=== PATIENT | male | born 1965 | race Caucasian/White ===

== ENCOUNTER 2017-02-04 20:17 | Inpatient (IN) | payer OTHER ==
[~2017-02-04] VITALS: Ht 193 cm; Wt 81.6 kg
--- NOTE | ~2017-02-04 | PN ---
Unit #: [id number] #: [id number] Patient: JOSETTE STONE [id number] [facility] [address] [place] [address] [id number] MR#: [id number] NAME: JOSETTE STONE ROOM: [facility] Age: 52 Sex: M Admission Date: 02/04/2017 : 1965 Attending Physician: Bouchra Estrada M.D. Admitting Physician: Bouchra Estrada M.D. Primary Care Physician: Britton Montenegro PROGRESS NOTES DATE February 11, 2017 DISCUSSION Mr. Stone is a 52-year-old white male, who was seen today and chart was reviewed and the case was discussed with the staff. He has been anxious, withdrawn, and rather seclusive to himself. Meanwhile, he has been cooperative with the treatment recommendations, and he has been taking the medications and tolerating them fairly well with no reported side effects. MENTAL STATUS EXAMINATION Middle-aged white male, who was casually dressed with fair personal hygiene and appears to be in no acute distress or discomfort. He was awake and alert on interaction with intact orientation. His mood is anxious with a congruent affect. His speech is slow and goal-directed. He denies any suicidal or homicidal ideations, and also denies any auditory or visual hallucinations. His insight and judgment remain slightly impaired. TREATMENT PLAN 1. We will continue him on his current medications and treatment protocol, and will monitor his response to the medications, and make further adjustments as needed. 2. We will continue to followup. Dictated by... Britton Avilez/farzana TD: 02/11/2017 12:59 JOB #: [id number] Unit #: [id number] #: [id number] Patient: JOSETTE STONE PROGRESS NOTES Page 1 of 1 X Bouchra Estrada MD PROGRESS NOTE
--- NOTE | ~2017-02-04 | PN ---
Unit #: [id number] #: [id number] Patient: JOSETTE STONE [id number] [facility] [address] [place] [address] [id number] MR#: [id number] NAME: JOSETTE STONE ROOM: P251 Age: 52 Sex: M Admission Date: 02/04/2017 : 1965 Attending Physician: Bouchra Estrada M.D. Admitting Physician: Bouchra Estrada M.D. Primary Care Physician: Britton Montenegro PROGRESS NOTES DATE 02/06/2017 DISCUSSION Mr. Stone is a 52-year-old white male who was seen today and chart was reviewed and case was discussed with the staff. He has been anxious, withdrawn and rather seclusive to himself. Meanwhile, he has been cooperative with treatment recommendations and has been taking medications and tolerating them fairly well with no reported side effects. MENTAL STATUS EXAMINATION Middle-aged white male who was casually dressed with fair personal hygiene and appears to be in no acute distress or discomfort. He was awake and alert on interaction with intact orientation. His mood was anxious and depressed with congruent affect. His speech is slow and restricted in content. He reports having suicidal ideations but denies any homicidal ideations. His insight and judgement remains significantly impaired. TREATMENT PLAN 1. Will continue on his current medications and treatment protocol. Will monitor his medications and make further adjustments as needed. 2. Will continue to follow up. Dictated by... Britton Avilez/benjamin TD: 02/06/2017 18:16 JOB #: [id number] Unit #: [id number] #: [id number] Patient: JOSETTE STONE PROGRESS NOTES Page 1 of 1 X Bouchra Estrada MD X PROGRESS NOTE
--- NOTE | ~2017-02-04 | HP ---
Unit #: [id number] #: [id number] Patient: RICKEY BARROSO [id number] [place] [address] [id number] MR#: [id number] NAME: RICKEY BARROSO ROOM: P251 Age: 52 Sex: M Admission Date: 02/04/2017 : 1965 Attending Physician: Bouchra Estrada M.D. Admitting Physician: Bouchra Estrada M.D. Primary Care Physician: Rickey Ponce M.D. HISTORY AND PHYSICAL HISTORY OF PRESENT ILLNESS Rickey is a 52 year old admitted to [address] [place] [address] with depression and verbalizing wanting to hurt himself. PAST MEDICAL HISTORY 1. History of alcohol abuse. He denies anything currently. 2. COPD. PAST SURGICAL HISTORY 1. Appendectomy. 2. Inguinal hernia repair. ALLERGIES No known drug allergies. SOCIAL HISTORY He smokes greater than 1 pack per day. Has a history of alcohol abuse but admits to using alcohol only "occasionally." He denies illicit drug use. FAMILY HISTORY Medically noncontributory. REVIEW OF SYSTEMS CONSTITUTIONAL: No fever or chills. HEENT: Denies any sore throat, ear pain or runny nose. CARDIOVASCULAR: Denies chest pain, irregular heart rhythm or palpitations. CHEST: Denies shortness of breath or cough. No hemoptysis. GASTROINTESTINAL: Denies nausea, vomiting, diarrhea or chronic constipation. ENDOCRINE: Denies history of increased thirst or urination. No recent significant weight loss or gain. GENITOURINARY: Denies dysuria, frequency, or hematuria. SKIN: Denies any rashes. HEMATOLOGIC: Denies history of increased bleeding or bruising. MUSCULOSKELETAL: Denies any hot, swollen joints. No generalized muscle pain. NEUROLOGIC: Denies problems with vision or speech. No frequent, severe headaches. No numbness, tingling or weakness in any extremities. Denies loss of bladder or bowel control. CURRENT MEDICATIONS 1. Zyprexa 30 mg q.h.s. 2. Protonix 40 mg daily. Unit #: [id number] #: [id number] Patient: RICKEY BARROSO 3. Whitmire 300 mg q.a.m., 600 mg q.h.s. 4. Nicotine patch 14 mg daily. 5. Milk of Magnesia p.r.n. 6. Maalox p.r.n. 7. Tylenol p.r.n. 8. Lamictal 25 mg b.i.d. PHYSICAL EXAMINATION GENERAL: Alert, well-nourished, in no apparent distress. VITAL SIGNS: Blood pressure 132/72, heart rate 70, respirations 16, temperature 98.6. WEIGHT: 180. HEIGHT: 6 feet 4 inches. SKIN: Warm and dry without rash or lesion. HEENT: Normocephalic. TMs not viewed. Oral and nasal passages clear. Conjunctivae clear. PERRLA. EOMs intact. NECK: Supple without lymphadenopathy or thyromegaly. HEART: Regular rate and rhythm without murmur. LUNGS: Clear. ABDOMEN: Soft, nontender. : Not done. EXTREMITIES: No evidence of cyanosis, clubbing or edema. Moves all without focal deficit. NEUROLOGICAL: Grossly within normal limits. Cranial Nerves: II: Visual engle are intact. III, IV AND : Extraocular movements are intact. Pupils are equal, round and reactive to light. V: Facial sensation is grossly normal. VII: Facial movements and expression are normal. VIII: Auditory acuity grossly intact. IX, X: Uvula is midline. Phonation is normal. XI: Patient shrugs shoulders and turns head normally. XII: Tongue protrudes in the midline. Sensory and Motor Function: Sensory and motor sensation is grossly normal. Motor: moves all extremities well. Coordination: Gait is normal. Deep Tendon Reflexes: Intact. IMPRESSION Psychiatric admission. RECOMMENDATIONS PSYCHIATRIC: Per psychiatrist. MEDICAL: See no contraindication to participate in facility's activities. MEDICAL PROGNOSIS Good. MEDICAL CONDITION Stable. Dictated by... Lanette Wiley P.A.-C. for Britton Pak/benjamin TD: 02/05/2017 17:25 Unit #: [id number] #: [id number] Patient: RICKEY BARROSO JOB #: [id number] HISTORY AND PHYSICAL Page 1 of 1 X Lanette Wiley X HISTORY AND PHYSICAL
--- NOTE | ~2017-02-04 | PN ---
Unit #: [id number] #: [id number] Patient: JOSETTE STONE [id number] [facility] [address] [place] [address] [id number] I MR#: [id number] NAME: JOSETTE STONE ROOM: P251 Age: 52 Sex: M Admission Date: 02/04/2017 : 1965 Attending Physician: Bouchra Estrada M.D. Admitting Physician: Bouchra Estrada M.D. Primary Care Physician: Britton Montenegro PROGRESS NOTES DATE 02/09/2017 DISCUSSION Mr. Stone is a 52-year-old white male who was seen today and chart was reviewed and case was discussed with the staff. He has been anxious, withdrawn, depressed and rather seclusive to himself and reports persistent depressive symptoms and feelings of hopelessness. Meanwhile, he has been cooperative with treatment recommendations and has been taking medications and tolerating them fairly well with no reported side effects. MENTAL STATUS EXAMINATION Middle-aged white male who was casually dressed with marginal personal hygiene and appears to be in no acute distress or discomfort. He was awake and alert with impaired attention and concentration. His mood was anxious and depressed with congruent affect. His speech is slow and restricted in content. He reports having suicidal ideation but denies any homicidal ideation. His insight and judgement remains slightly impaired. TREATMENT PLAN 1. Will continue on his current medications and treatment protocol and will monitor his response to the medications and make further adjustments as needed. 2. Will continue to follow up. Dictated by... Britton Avilez/benjamin TD: 02/09/2017 23:10 JOB #: [id number] Unit #: [id number] #: [id number] Patient: JOSETTE STONE PROGRESS NOTES Page 1 of 1 X Bouchra Estrada MD PROGRESS NOTE
--- NOTE | ~2017-02-04 | PA ---
Unit #: [id number] #: [id number] Patient: RICKEY STONE [id number] [facility] [address] [place] [address] [id number] MR#: [id number] NAME: RICKEY STONE ROOM: P251 Age: 52 Sex: M Admission Date: 02/04/2017 : 1965 Date of Assessment: 02/04/2017 Attending Physician: Bouchra Estrada M.D. Admitting Physician: Bouchra Estrada M.D. Primary Care Physician: Rickey Ponce M.D. PSYCHIATRIC ASSESSMENT IDENTIFYING DATA Mr. Stone is a 52-year-old, single, disabled, white male, who is a resident of [place], [place], and was self-referred to the hospital and was brought in by crisis intervention team of [place] [employer]. CHIEF COMPLAINT "Because I was having suicidal thoughts." HISTORY OF PRESENT ILLNESS Mr. Stone is a 52-year-old white male with a history of mood disorder, who called crisis intervention team to bring him to [facility] because he was having suicidal thoughts and reports that he stopped taking his lithium and Lamictal at least 7 days ago and reports he has been having suicidal thoughts for the last 2 to 3 days and he has a long history of mental health treatment with multiple inpatient hospitalizations, mostly at [facility], and reports currently decompensating, particularly since being off his medication and does report increasing depression, anxiety, irritability, restlessness, feelings of hopelessness and helplessness, and suicidal ideations and as such, recommendation for inpatient level of care for safety and stabilization was made. The patient was stepped up to the inpatient unit. SUBSTANCE ABUSE HISTORY The patient reports history of alcohol, cannabis, and cocaine in the distant past, but has not used any drugs in the last several years. PAST PSYCHIATRIC HISTORY The patient has had a history of multiple inpatient psychiatric hospitalization at [facility] in addition to being at other places, and has been diagnosed and treated for mood disorder. Review of the medical records indicate that currently he is on a combination of psychotropic medication, but has stopped taking the medication. PAST MEDICAL HISTORY Hypertension and acid reflux disease. ALLERGIES No known medication allergies. PERSONAL AND SOCIAL HISTORY A 52-year-old white male, who reports that he [facility] a [facility] Unit #: [id number] #: [id number] Patient: RICKEY STONE and reports fairly decent social support system. MENTAL STATUS EXAMINATION Middle-aged white male, who was casually dressed with fair personal hygiene, appears to be in no acute distress or discomfort. He was awake and alert on interaction with intact orientation. His mood was anxious with a congruent affect. His speech was slow and goal directed. He reports having suicidal ideations, but denies any homicidal ideations, and also denies any auditory or visual hallucinations. His insight and judgment remain significantly impaired. DIAGNOSTIC IMPRESSION Psychiatric: Bipolar disorder, most recent episode depressed, recurrent, moderate, with psychosis. Medical: None. Stressors: Moderate psychosocial stressors. TREATMENT PLAN 1. The patient has presented with a history of mood disorder, and has been decompensating. We will recommend inpatient hospitalization for safety and stabilization. We will start him back on his home medications. We will adjust the medications and monitor response. 2. Supportive therapy was provided to the patient. ESTIMATED LENGTH OF STAY 5 to 7 days. ABILITY TO HELP SELF Limited. WILLINGNESS TO HELP SELF The patient appears to be willing to help self. STRENGTHS 1. Communicative. 2. Cooperative. PROBLEMS 1. Chronic dysphoric symptoms. 2. Poor social support system. DISCHARGE CRITERIA This will be contingent upon the patient's ability to show resolution of his depression and his ability to stay safe to himself, particularly after discharge from the hospital. Dictated by... Britton Avilez/robles TD: 02/05/2017 08:11 JOB #: [id number] Unit #: [id number] #: [id number] Patient: RICKEY STONE PSYCHIATRIC ASSESSMENT Page 1 of 1 X Bouchra Estrada MD X PSYCHIATRIC ASSESSMENT
--- NOTE | ~2017-02-04 | PN ---
Unit #: [id number] #: [id number] Patient: JOSETTE STONE [id number] [facility] [address] [place] [address] [id number] I MR#: [id number] NAME: JOSETTE STONE ROOM: [facility] Age: 52 Sex: M Admission Date: 02/04/2017 : 1965 Attending Physician: Bouchra Estrada M.D. Admitting Physician: Bouchra Estrada M.D. Primary Care Physician: Britton Montenegro NOTES DATE OF SERVICE 02/12/2017 DISCUSSION Mr. Stone is a 52-year-old white male who was seen today. Chart was reviewed and case was discussed with the staff. He has been anxious, withdrawn, and rather seclusive to himself. Meanwhile, he has been reporting persistent depressive symptom though he has been taking the medications and tolerating them fairly well with no reported side effects. MENTAL STATUS EXAMINATION Middle-aged white male who is casually dressed with fair personal hygiene, appears to be in no acute distress or discomfort. He was awake and alert on interaction with intact orientation. His mood is anxious with congruent affect. His speech is slow and goal-directed. He denies any suicidal or homicidal ideations and also denies any auditory or visual hallucinations. His insight and judgment remain slightly impaired. TREATMENT PLAN 1. We will continue him on his current medications and treatment protocol. We will monitor his response to the medications and make further adjustments as needed. 2. We will continue to follow up. Dictated by... Britton Avilez/jermain TD: 02/12/2017 11:59 JOB #: [id number] Unit #: [id number] #: [id number] Patient: JOSETTE STONE PROGRESS NOTES Page 1 of 1 X Bouchra Estrada MD PROGRESS NOTE
--- NOTE | ~2017-02-04 | PN ---
Unit #: [id number] #: [id number] Patient: JOSETTE STONE [id number] [facility] [address] [place] [address] [id number] I MR#: [id number] NAME: JOSETTE STONE ROOM: P25 Age: 52 Sex: M Admission Date: 02/04/2017 : 1965 Attending Physician: Bouchra Estrada M.D. Admitting Physician: Bouchra Estrada M.D. Primary Care Physician: Britton Montenegro PROGRESS NOTES DATE February 10, 2017 DISCUSSION Mr. Stone is a 52-year-old white male, who was seen today and chart was reviewed and the case was discussed with the staff. He has been anxious, withdrawn, depressed, and rather seclusive to himself. Meanwhile, he has been cooperative with the treatment recommendations and he has been taking the medications and tolerating them fairly well with no reported side effects. MENTAL STATUS EXAMINATION Middle-aged white male, who was casually dressed with fair personal hygiene and appears to be in no acute distress or discomfort. He was awake and alert on interaction with intact orientation. His mood is anxious with a congruent affect. He denies any suicidal or homicidal ideations, and also denies any auditory or visual hallucinations. His insight and judgment remain slightly impaired. TREATMENT PLAN 1. We will continue him on his current medications and treatment protocol, and will monitor his response to the medications, and make further adjustments as needed. 2. We will continue to followup. Dictated by... Britton Avilez/farzana TD: 02/10/2017 12:46 JOB #: [id number] Unit #: [id number] #: [id number] Patient: JOSETTE STONE PROGRESS NOTES Page 1 of 1 X Bouchra Estrada MD X PROGRESS NOTE
--- NOTE | ~2017-02-04 | PN ---
Unit #: [id number] #: [id number] Patient: JOSETTE BARROSO [id number] [facility] [address] [place] [address] [id number] I MR#: [id number] NAME: JOSETTE BARROSO ROOM: P251 Age: 52 Sex: M Admission Date: 02/04/2017 : 1965 Attending Physician: Bouchra Estrada M.D. Admitting Physician: Bouchra Estrada M.D. Primary Care Physician: Britton Montenegro PROGRESS NOTES DATE OF SERVICE 02/13/2017 DISCUSSION Mr. Barroso is a 52-year-old white male who was seen today. Chart was reviewed and case was (1) __ rather seclusive to himself. Meanwhile, she has been cooperative with the treatment recommendations and has been taking the medications and tolerating them fairly well. MENTAL STATUS EXAMINATION Middle-aged white male who is casually dressed with fair personal hygiene, appears to be in no acute distress or discomfort. The patient was awake and alert with intact orientation. His mood is anxious with congruent affect. He denies any suicidal or homicidal ideations. His insight and judgment remain slightly impaired. TREATMENT PLAN 1. We will continue him on his current treatment protocol. We will monitor his response to the medications and make further adjustments as needed. 2. We will continue to follow up. Dictated by... Bouchra Estrada M.D. IAA/bzg TD: 02/13/2017 18:16 JOB #: [id number] [facility] PROGRESS NOTES Page 1 of 1 X Bouchra Estrada MD PROGRESS NOTE
--- NOTE | ~2017-02-04 | PN ---
Unit #: [id number] #: [id number] Patient: JOSETTE STONE [id number] [facility] [address] [place] [address] [id number] MR#: [id number] NAME: JOSETTE STONE ROOM: P25 Age: 52 Sex: M Admission Date: 02/04/2017 : 1965 Attending Physician: Bouchra Estrada M.D. Admitting Physician: Bouchra Estrada M.D. Primary Care Physician: Britton Montenegro PROGRESS NOTES DATE February 07, 2017 DISCUSSION Mr. Stone is a 52-year-old white male, who was seen today and chart was reviewed and the case was discussed with the staff. He has been anxious, withdrawn, and rather seclusive to himself. Meanwhile, he has been cooperative with the treatment recommendations and he has been taking the medications and tolerating them fairly well with no reported side effects. MENTAL STATUS EXAMINATION Middle-aged white male, who was casually dressed with fair personal hygiene and appears to be in no acute distress or discomfort. He was awake and alert on interaction with intact orientation. His mood is anxious with a congruent affect. His speech is slow and goal-directed. He denies any suicidal or homicidal ideations. His insight and judgment remain slightly impaired. TREATMENT PLAN 1. We will continue him on his current medications and treatment protocol, and will monitor his response, and make further adjustments as needed. 2. We will continue to followup. Dictated by... Britton Avilez/farzana TD: 02/08/2017 09:33 JOB #: [id number] Unit #: [id number] #: [id number] Patient: JOSETTE STONE PROGRESS NOTES Page 1 of 1 X Bouchra Estrada MD PROGRESS NOTE
--- NOTE | ~2017-02-04 | PN ---
Unit #: [id number] #: [id number] Patient: JOSETTE STONE [id number] [facility] [address] [place] [address] [id number] I MR#: [id number] NAME: JOSETTE STONE ROOM: P251 Age: 52 Sex: M Admission Date: 02/04/2017 : 1965 Attending Physician: Bouchra Estrada M.D. Admitting Physician: Bouchra Estrada M.D. Primary Care Physician: Britton Montenegro PROGRESS NOTES DATE February 08, 2017 DISCUSSION Mr. Stone is a 52-year-old white male, who was seen today and chart was reviewed and the case was discussed with the staff. He has been anxious, withdrawn, and seclusive to himself. He was lying in bed and reports fairly persistent worsening depressive symptoms with feelings of hopelessness and helplessness, and he was unable to identify any frequent stressors. Meanwhile, he has been taking the medications and tolerating them fairly well with no reported side effects. MENTAL STATUS EXAMINATION Middle-aged white male, who was casually dressed with fair personal hygiene and appears to be in no acute distress or discomfort. He was awake and alert on interaction with intact orientation. His mood is anxious with a congruent affect. His speech is slow and goal-directed. He denies any suicidal or homicidal ideations, and also denies any auditory or visual hallucinations. His insight and judgment remain slightly impaired. TREATMENT PLAN 1. We will continue him on his current medications and treatment protocol, and will monitor his response to the medications, and make further adjustments as needed. 2. We will continue to followup. Dictated by... Britton Avilez/farzana TD: 02/09/2017 08:25 JOB #: [id number] Unit #: [id number] #: [id number] Patient: JOSETTE STONE PROGRESS NOTES Page 1 of 1 X Bouchra Estrada MD PROGRESS NOTE
[2017-02-05 10:15] LABS: URINE APPEARANCE CLEAR; URINE BILIRUBIN NEG (NEG); URINE BLOOD NEG (NEG); URINE COLOR YELLOW; URINE GLUCOSE NEG (NEG); URINE KETONE NEG (NEG); URINE LEUKOCYTE ESTERASE 2+ (NEG); URINE NITRATE NEG (NEG); URINE PH 5.5 (5-8); URINE PROTEIN NEG (NEG); URINE SPECIFIC GRAVITY 1.006 (1.003-1.035); URINE UROBILINOGEN 0.2 MG/DL (NEG)
[2017-02-05 10:19] LABS: URBCS1 AUWI 0-2 /[HPF] (0-2); URINE BACTERIA AUWI NEG (NEGATIVE); URINE SQUAMOUS EPITHELIAL CELL NONE SEEN /[HPF]
[2017-02-05 10:45] LABS: AMPHETAMINE NEG (NEG); BARBITURATES NEG (NEG); BENZODIAZEPINES NEG (NEG); COCAINE NEG (NEG); MARIJUANA NEG (NEG); OPIATES NEG (NEG); TRICYCLIC ANTIDEPRESSANTS NEG (NEG); U METHADONE NEG (NEG)
[2017-02-05 12:31] LABS: BASOPHIL# 0.1 X10e3 (0-0.3); BASOPHIL% 0.9 % (0-2.5); EOSINOPHIL# 0.3 X10e3 (0-0.7); EOSINOPHIL% 3.8 % (0.0-7.0); HEMATOCRIT 43.2 % (38.0-50.0); HEMOGLOBIN 14.9 gm/dL (13.0-16.0); LYMPHOCYTE# 1.4 X10e3 (1.0-3.5); LYMPHOCYTE% 20.9 % (17.0-45.0); MEAN CELL VOLUME 91.4 FL (83-96); MEAN CORPUSCULAR HEMOGLOBIN 31.4 PG (28-34); MEAN CORPUSCULAR HGB CONC 34.4 g/dL (30-36); MEAN PLATELET VOLUME 7.5 FL (6.5-11.5); MONOCYTE# 0.6 X10e3 (0-1.0); MONOCYTE% 8.4 % (3.0-12.0); NEUTROPHIL# 4.4 X10e3 (1.5-7.1); PLATELET COUNT 299 X10e3 (140-420); RED BLOOD COUNT 4.73 X10e (3.90-5.60); RED CELL DISTRIBUTION WIDTH 13.6 % (11.0-15.5); WHITE BLOOD COUNT 6.6 X10e3 (4.0-10.5)
[2017-02-05 12:32] LABS: DIFF IND NO
[2017-02-05 12:43] LABS: ALBUMIN SERUM 3.9 g/dL (3.5-5.0); BILIRUBIN,TOTAL 0.4 mg/dL (0.2-2.0); BUN/CREATININE RATIO 7.5; CALCIUM SERUM 9.2 mg/dL (8.4-10.2); CREATININE SERUM 0.8 mg/dL (0.6-1.4); GLOM FILT RATE Estimated 101.3 mL/min (>60); POTASSIUM 4.2 mmol/L (3.5-5.1); PROTEIN TOTAL SERUM 6.2 g/dL (6.0-8.3)
== END 2017-02-13 13:00 | disposition home or self-care (01) | DRG 885 ==
LOC: P2L 21:33
PROVIDERS: Psychiatry & Neurology Psychiatry
DX: F31.32 Bipolar disorder, current episode depressed, moderate (principal); I10 Essential (primary) hypertension; K21.9 Gastro-esophageal reflux disease without esophagitis; J44.9 Chronic obstructive pulmonary disease, unspecified; F17.210 Nicotine dependence, cigarettes, uncomplicated
CPT/HCPCS: 80053; 80178; 80307; 81003; 85025